=== PATIENT | female | born 2000 | race Caucasian/White ===

== ENCOUNTER 2018-02-21 20:44 | Inpatient (IN) | payer OTHER ==
[2018-02-21] MEDS ORDERED: GLUCAGON 1 MG INJ IM (22:00)
[2018-02-21] MEDS ORDERED: GLUCOSE GEL 15 GRAM TUBE BUCCAL (22:00)
[2018-02-21] MEDS ORDERED: DEXTROSE 50% 50 ML SYRINGE IV ×2 (22:00)
[2018-02-21] MEDS ORDERED: GLUCOSE GEL 15 GRAM TUBE PO ×2 (22:00)
[2018-02-21] MEDS: D5W-0.45 NACL + KCL 20 MEQ 1,000 ML IV (22:28)
[2018-02-22] MEDS ORDERED: morphine 2 MG INJ IV (00:30)
[2018-02-22] MEDS: ACCU-CHEK XX (02:00)
[2018-02-22 05:04] LABS: ADD MAN DIFF? NO
[2018-02-22 05:08] LABS: WHITE BLOOD COUNT 6.4 10^3/ul (4.8-10.8)
[2018-02-22 05:08] LABS: BASOPHILS % 0.6 % (0.0-2.0); EOSINOPHILS # 0.1 10^3/ul (0.0-0.5); EOSINOPHILS % 0.8 % (0.0-7.0); HEMATOCRIT 32.6 % (37.0-47.0); HEMOGLOBIN 11.4 g/dl (12.0-16.0); LYMPHOCYTES # 2.4 10^3/ul (0.8-2.9); LYMPHOCYTES % 37.2 % (18.0-55.0); MEAN CORPUSCULAR HEMOGLOBIN 28.7 pg (29.0-33.0); MEAN CORPUSCULAR VOLUME 82.1 fl (72.0-104.0); MEAN PLATELET VOLUME 11.2 fl (7.4-10.4); MONOCYTE # 0.8 10^3/ul (0.3-0.9); MONOCYTES % 12.3 % (0.0-13.0); NEUTROPHIL # 3.1 10^3/ul (1.6-7.5); NEUTROPHILS % 48.8 % (30.0-74.0); PLATELET COUNT 236 10^3/UL (140-415); RED BLOOD COUNT 3.97 10^6/ul (4.20-5.40); RED CELL DISTRIBUTION WIDTH 11.8 % (11.5-14.5)
[2018-02-22 05:39] LABS: ALANINE AMINOTRANSFERASE 29 IU/L (13-69); ALBUMIN 3.1 g/dl (3.3-4.9); ALBUMIN/GLOBULIN RATIO 1.06; ALKALINE PHOSPHATASE 45 IU/L (42-121); ANION GAP 12 (8-16); ASPARTATE AMINO TRANSFERASE 20 IU/L (15-46); BILIRUBIN,INDIRECT 0.5 mg/dl (0-1.1); BILIRUBIN,TOTAL 0.5 mg/dl (0.2-1.3); BLOOD UREA NITROGEN 4 mg/dl (7-20); CALCIUM 8.5 mg/dl (8.4-10.2); CARBON DIOXIDE 24 mmol/L (21-31); CHLORIDE 105 mmol/L (97-110); CREATININE 0.43 mg/dl (0.44-1.00); GLUCOSE 108 mg/dl (70-220); MAGNESIUM 1.9 mg/dl (1.7-2.5); POTASSIUM 3.3 mmol/L (3.5-5.1); SODIUM 138 mmol/L (135-144)
[2018-02-22] MEDS: INSULIN ASPART [NOVOLOG] 3 ML PEN SC ×4 (06:00→18:00)
[2018-02-22] MEDS: D5W-0.45 NACL + KCL 20 MEQ 1,000 ML IV ×3 (07:30→20:01)
[2018-02-22] MEDS: POTASSIUM CHLORIDE (SR) 20 MEQ TAB PO (10:13)
[2018-02-22] MEDS: ONDANSETRON 4 MG INJ IV (16:22)
[2018-02-22 16:44] LABS: FOLATE 18.5 ng/ml (2.8-20.0)
[2018-02-22 17:43] LABS: FREE T4 (FREE THYROXINE) 5.13 ng/dl (0.78-2.49)
[2018-02-22 17:45] LABS: THYROID STIMULATING HORMONE < 0.015 MIU/L (0.465-4.680)
[2018-02-22] MEDS: THIAMINE 200 MG INJ IM (18:50)
[2018-02-22 19:09] LABS: LIPASE 231 U/L (23-300)
[2018-02-22] MEDS: CLOTRIMAZOLE 1% 45 GM VAG CR VAG (21:00)
[2018-02-23] MEDS: ACCU-CHEK XX (01:46)
[2018-02-23] MEDS: D5W-0.45 NACL + KCL 20 MEQ 1,000 ML IV ×3 (03:40→23:30)
[2018-02-23 05:34] LABS: ADD MAN DIFF? NO
[2018-02-23 05:38] LABS: WHITE BLOOD COUNT 6.1 10^3/ul (4.8-10.8)
[2018-02-23 05:38] LABS: BASOPHILS % 0.3 % (0.0-2.0); EOSINOPHILS # 0.1 10^3/ul (0.0-0.5); EOSINOPHILS % 1.1 % (0.0-7.0); HEMATOCRIT 32.6 % (37.0-47.0); HEMOGLOBIN 11.5 g/dl (12.0-16.0); LYMPHOCYTES # 2.2 10^3/ul (0.8-2.9); LYMPHOCYTES % 36.5 % (18.0-55.0); MEAN CORPUSCULAR HEMOGLOBIN 28.8 pg (29.0-33.0); MEAN CORPUSCULAR HGB CONC 35.3 g/dl (32.0-37.0); MEAN CORPUSCULAR VOLUME 81.7 fl (72.0-104.0); MEAN PLATELET VOLUME 11.6 fl (7.4-10.4); MONOCYTE # 0.6 10^3/ul (0.3-0.9); MONOCYTES % 10.3 % (0.0-13.0); NEUTROPHIL # 3.1 10^3/ul (1.6-7.5); NEUTROPHILS % 51.6 % (30.0-74.0); PLATELET COUNT 234 10^3/UL (140-415); RED BLOOD COUNT 3.99 10^6/ul (4.20-5.40); RED CELL DISTRIBUTION WIDTH 11.9 % (11.5-14.5)
[2018-02-23] MEDS: INSULIN ASPART [NOVOLOG] 3 ML PEN SC ×5 (06:00→20:59)
[2018-02-23 06:09] LABS: ALANINE AMINOTRANSFERASE 26 IU/L (13-69); ALBUMIN/GLOBULIN RATIO 0.96; ALKALINE PHOSPHATASE 43 IU/L (42-121); ANION GAP 14 (8-16); ASPARTATE AMINO TRANSFERASE 19 IU/L (15-46); BILIRUBIN,INDIRECT 0.2 mg/dl (0-1.1); BILIRUBIN,TOTAL 0.2 mg/dl (0.2-1.3); BLOOD UREA NITROGEN 5 mg/dl (7-20); CARBON DIOXIDE 21 mmol/L (21-31); CHLORIDE 110 mmol/L (97-110); GLUCOSE 106 mg/dl (70-220); MAGNESIUM 1.8 mg/dl (1.7-2.5); POTASSIUM 3.6 mmol/L (3.5-5.1); SODIUM 141 mmol/L (135-144); TOTAL PROTEIN 6.1 g/dl (6.1-8.1)
[2018-02-23] MEDS: ONDANSETRON INJ 8 MG in DEXTROSE 5% 50 ML IV (09:49)
[2018-02-23] MEDS: THIAMINE 200 MG INJ IM (09:50)
[2018-02-23] MEDS: PYRIDOXINE 50 MG TAB PO ×2 (12:35→19:14)
[2018-02-23] MEDS: MULTIVITAMINS 10 ML, THIAMINE 100 MG, FOLIC ACID 1 MG in SOD CHLORIDE 0.9% 1,000 ML IVPB (19:14)
[2018-02-23] MEDS: CLOTRIMAZOLE 1% 45 GM VAG CR VAG (21:00)
[2018-02-24] MEDS: IBUPROFEN 400 MG TAB PO (01:24)
[2018-02-24] MEDS: ONDANSETRON INJ 8 MG in DEXTROSE 5% 50 ML IV (02:57)
[2018-02-24] MEDS: D5W-0.45 NACL + KCL 20 MEQ 1,000 ML IV ×3 (05:09→15:33)
[2018-02-24] MEDS: INSULIN ASPART [NOVOLOG] 3 ML PEN SC ×3 (07:50→18:27)
[2018-02-24] MEDS: PYRIDOXINE 50 MG TAB PO ×3 (09:21→18:26)
[2018-02-24] MEDS: THIAMINE 200 MG INJ IM (09:51)
[2018-02-24] MEDS: MAGNESIUM HYDROXIDE 30ML CUP PO (11:03)
[2018-02-24] MEDS: DOCUSATE SODIUM 100 MG CAP PO ×2 (11:03→21:07)
[2018-02-24] MEDS: ACCU-CHEK XX ×4 (14:30→21:00)
[2018-02-24] MEDS: CLOTRIMAZOLE 1% 45 GM VAG CR VAG (21:00)
[2018-02-25] MEDS: D5W-0.45 NACL + KCL 20 MEQ 1,000 ML IV ×2 (02:15→05:15)
[2018-02-25] MEDS: ACCU-CHEK XX ×4 (05:31→11:10)
[2018-02-25] MEDS: INSULIN ASPART [NOVOLOG] 3 ML PEN SC ×2 (07:50→13:26)
[2018-02-25] MEDS: DOCUSATE SODIUM 100 MG CAP PO (08:53)
[2018-02-25] MEDS: THIAMINE 200 MG INJ IM (08:54)
[2018-02-25] MEDS: PYRIDOXINE 50 MG TAB PO ×2 (08:54→12:04)
[2018-02-25] MEDS: IBUPROFEN 400 MG TAB PO (12:04)
[2018-02-27 15:16] LABS: VITAMIN B1 (THIAMINE) 90 nmol/L (78-185)
== END 2018-02-25 15:55 | disposition home or self-care (01) | DRG 781 ==
LOC: MS1 20:44
PROVIDERS: Internal Medicine
DX: O21.1 Hyperemesis gravidarum with metabolic disturbance (principal); O99.281 Endocrine, nutritional and metabolic diseases complicating pregnancy, first trimester; E05.80 Other thyrotoxicosis without thyrotoxic crisis or storm; Z3A.09 9 weeks gestation of pregnancy
CPT/HCPCS: 76536; 76817; 80053; 82746; 82962; 83036; 83690; 83735; 84425; 84439; 84443; 84481; 84702; 85025

== ENCOUNTER 2018-03-23 19:22 | Emergency (ER) | payer OTHER ==
[2018-03-23] MEDS: SOD CHLORIDE 0.9% 1,000 ML IV (20:34)
[2018-03-23] MEDS: METOCLOPRAMIDE 10 MG INJ IV (20:34)
[2018-03-23 20:45] LABS: ADD MAN DIFF? NO
[2018-03-23 20:48] LABS: BASOPHILS % 0.2 % (0.0-2.0); EOSINOPHILS % 0.1 % (0.0-7.0); HEMATOCRIT 39.2 % (37.0-47.0); HEMOGLOBIN 13.5 g/dl (12.0-16.0); LYMPHOCYTES # 1.4 10^3/ul (0.8-2.9); LYMPHOCYTES % 15.2 % (18.0-55.0); MEAN CORPUSCULAR HEMOGLOBIN 29.1 pg (29.0-33.0); MEAN CORPUSCULAR HGB CONC 34.4 g/dl (32.0-37.0); MEAN CORPUSCULAR VOLUME 84.5 fl (72.0-104.0); MEAN PLATELET VOLUME 10.6 fl (7.4-10.4); MONOCYTE # 0.3 10^3/ul (0.3-0.9); MONOCYTES % 3.5 % (0.0-13.0); NEUTROPHIL # 7.1 10^3/ul (1.6-7.5); NEUTROPHILS % 80.7 % (30.0-74.0); PLATELET COUNT 308 10^3/UL (140-415); RED BLOOD COUNT 4.64 10^6/ul (4.20-5.40); RED CELL DISTRIBUTION WIDTH 12.5 % (11.5-14.5)
[2018-03-23 20:48] LABS: WHITE BLOOD COUNT 8.9 10^3/ul (4.8-10.8)
[2018-03-23 21:08] LABS: ADD UMIC YES; UR ASCORBIC ACID NEGATIVE (NEGATIVE); UR BILIRUBIN (Dip) NEGATIVE (NEGATIVE); UR BLOOD (Dip) NEGATIVE (NEGATIVE); UR CLARITY SLIGHTLY CLOUDY (CLEAR); UR COLOR YELLOW (YELLOW); UR GLUCOSE (Dip) 1+ mg/dL (NEGATIVE); UR KETONES (Dip) 2+ mg/dL (NEGATIVE); UR LEUKOCYTE ESTERASE (Dip) TRACE Leu/ul (NEGATIVE); UR MUCUS MANY /HPF (NONE SEEN); UR NITRITE (Dip) NEGATIVE (NEGATIVE); UR RBC 3 /HPF (0-5); UR SPECIFIC GRAVITY (Dip) 1.021 (1.003-1.030); UR SQUAMOUS EPITHELIAL CELL FEW /HPF (FEW); UR TOTAL PROTEIN (Dip) 1+ mg/dl (NEGATIVE); UR UROBILINOGEN (Dip) NEGATIVE (NEGATIVE); UR WBC 2 /HPF (0-5)
[2018-03-23 21:09] LABS: ALANINE AMINOTRANSFERASE 27 IU/L (13-69); ALBUMIN 4.3 g/dl (3.3-4.9); ALBUMIN/GLOBULIN RATIO 1.13; ALKALINE PHOSPHATASE 75 IU/L (42-121); ANION GAP 18 (8-16); ASPARTATE AMINO TRANSFERASE 16 IU/L (15-46); BILIRUBIN,INDIRECT 0.3 mg/dl (0-1.1); BILIRUBIN,TOTAL 0.3 mg/dl (0.2-1.3); BLOOD UREA NITROGEN 8 mg/dl (7-20); CALCIUM 9.4 mg/dl (8.4-10.2); CARBON DIOXIDE 23 mmol/L (21-31); CHLORIDE 104 mmol/L (97-110); CREATININE 0.47 mg/dl (0.44-1.00); GLUCOSE 90 mg/dl (70-220); LIPASE 60 U/L (23-300); POTASSIUM 3.9 mmol/L (3.5-5.1); SODIUM 141 mmol/L (135-144); TOTAL PROTEIN 8.1 g/dl (6.1-8.1)
[2018-03-23 21:44] LABS: THYROID STIMULATING HORMONE < 0.015 MIU/L (0.465-4.680)
[2018-03-23 21:51] LABS: T3 UPTAKE 21.5 % (23.5-40.5)
[2018-03-23 21:52] LABS: FREE THYROXINE INDEX (Calc) 5.35 ug/ml (0.65-3.89)
[2018-03-23 21:53] LABS: T4 (THYROXINE) > 24.9 ug/dl (5.5-11.0)
== END 2018-03-23 22:56 | disposition home or self-care (01) ==
LOC: FTE 19:22
DX: O21.9 Vomiting of pregnancy, unspecified (principal); O99.281 Endocrine, nutritional and metabolic diseases complicating pregnancy, first trimester; N25.81 Secondary hyperparathyroidism of renal origin; O23.41 Unspecified infection of urinary tract in pregnancy, first trimester; O24.111 Pre-existing type 2 diabetes mellitus, in pregnancy, first trimester; Z3A.13 13 weeks gestation of pregnancy
CPT/HCPCS: 36415; 76805; 80053; 81001; 83690; 84436; 84443; 84479; 85025; 96374; 99285-25